=== PATIENT | male | born 1970 | race Two or more races ===

== ENCOUNTER 2024-06-15 08:40 | Day surgery (SDC) | payer MEDICAID, SELFPAY ==
--- NOTE | 2024-06-14 07:00 | EKG_ITS ---
[facility] Test Date: 2024-06-14 Pat Name: KENZIE VEGA Department: Room: - Gender: Male Health Services Administrator: BILLIE : 1970 Requested By: Vinod Montalvo Order Number: [id number] Reading MD: Vinod Montalvo Measurements Intervals [place] Rate: 58 P: 37 PA: 159 QRS: 48 QRSD: 106 T: 38 QT: 388 QTc: 383 Interpretive Statements SINUS BRADYCARDIA INDETERMINATE AXIS No previous ECG available for comparison /store/S0/[id number]/ecg/[id number].pdf
[2024-06-14 07:06] VITALS: BMI 25.3
[2024-06-14 07:38] LABS: Collection Type, Urine Clean Catch; Squamous Epithelial Cell,Urine 0 /hpf (0-5)
[2024-06-14 09:14] LABS: Anion Gap 6 (7-16); BUN/Creatinine Ratio 25 Ratio (12-20); Blood Urea Nitrogen 20 mg/dL (9-23); Calcium 10.2 mg/dL (8.3-10.6); Carbon Dioxide 30.6 mMol/L (20.0-31.0); Chloride 101 mMol/L (98-107); Creatinine (Component) 0.8 mg/dL (0.6-1.3); Estimated Creatinine Clearance 103.1 mL/min (>60); Glucose 134 mg/dL (74-106); Osmolality,Calculated 280 (275-295); Sodium 138 mMol/L (136-145); eGFR > 60 See Note
[2024-06-14 09:15] LABS: Basophils % (Auto) 0 % (0-2.5); Eosinophils # (Auto) 0.1 Thou/mm3 (0.0-0.5); Eosinophils % (Auto) 1 % (0-10); Hematocrit 41.7 % (41.0-53.0); Hemoglobin 14.1 g/dL (13.5-16.0); Immature Granulocytes % (Auto) 0 % (0-0); Immature Granulocytes Auto 0.03 Thou/mm3 (0.00-0.00); Lymphocytes # (Auto) 1.7 Thou/mm3 (1.0-4.8); Lymphocytes % (Auto) 25 % (10-50); Mean Corpuscular HGB Conc 33.8 g/dl (31.0-37.0); Mean Corpuscular Hemoglobin 30.2 pg (25.0-35.0); Mean Corpuscular Volume 89 fL (80-100); Monocytes # (Auto) 0.6 Thou/mm3 (0.0-0.8); Monocytes % (Auto) 9 % (0-12); Neutrophils # (Auto) 4.5 Thou/mm3 (1.8-7.7); Neutrophils % (Auto) 65 % (37-80); Nucleated Red Blood Cell % 0 /100 WBC (0); Platelet Count 237 Thou/mm3 (140-440); RDW Standard Deviation 40.9 fL (35.1-43.9); Red Blood Count 4.67 Miln/mm3 (4.50-5.90)
[2024-06-14 09:25] LABS: Bilirubin,Urine Negative (Negative); Blood,Urine Negative (Negative); Clarity,Urine Clear (Clear/Hazy); Color,Urine Lt-Yellow (Lt Yel-Yel); Glucose, Urine Negative (Negative); Ketones,Urine Negative (Negative); Leukocyte Esterase,Urine Negative (Negative); Nitrite,Urine Negative (Negative); Protein,Urine Negative (Neg - Trace); RBC,Urine 4 /hpf (0-3); Specific Gravity,Urine 1.024 (1.001-1.035); Urobilinogen,Urine Negative mg/dL (0.0-1.0); WBC,Urine < 1 /hpf (0-5)
--- NOTE | 2024-06-14 10:09 | ESHP_ITS ---
RE: KENZIE VEGA : 1970 DATE OF ADMISSION: 06/14/2024 HISTORY OF PRESENT ILLNESS: Kenzie Vega is a 54-year-old male who was referred to me with a history of tight phimosis. He has trouble cleaning his penis and head of the penis. PAST SURGICAL HISTORY: None. SOCIAL HISTORY: He has four children. PAST MEDICAL HISTORY: No history of diabetes mellitus. No history of hypertension. ALLERGIES: NONE KNOWN. HOME MEDICATIONS: None. PHYSICAL EXAMINATION: HEENT: Normal. NECK: Supple. LUNGS: Clear. CARDIOVASCULAR: Heart sounds are normal. ABDOMEN: Soft without any organomegaly. No guarding. No rigidity. EXTREMITIES: Normal. GENITOURINARY: Phallus reveals tight phimosis. Testes are down in scrotum. IMPRESSION: Tight phimosis. PLAN: Circumcision. Planned procedure risks and complications have been discussed with the patient. The patient has understood them and agreed to proceed. DT: 09:17:23 TT: 10:08:00 Ref: [id number] - TID: [id number]
[2024-06-15] VITALS (7 sets, daily range): BP systolic 116–134; BP diastolic 70–86; PULSE 72–95; RESP 12–20; TEMP 36.1–36.4; O2SAT 98–100; BMI 25.1
[2024-06-15] MEDS: RINGERS LACTATED 1000 ML 1,000 ML 20 ML IV (09:40)
--- NOTE | 2024-06-15 10:55 | SUR.PHASEI ---
pt received from OR in recovery bay 2. pt obtunded, breathing unlabored on 8l oxymask, oral airway in place. v/s stable. pt dressing to penis scant blood noted. report received from Dr. Weir and Joshua LOMBARDI.
--- NOTE | 2024-06-15 11:40 | SUR.PHASEII ---
pt able to tolerate oral fluids without difficulty swallowing or nausea/vomiting.
--- NOTE | 2024-06-15 12:00 | SUR.PHASEII ---
pt awake and alert, breathing unlabored on room air. v/s stable. pt dressing to penis area cdi. pt able to ambulate to wheelchair with steady gait. d/c instructions given with in room using oral surgery physician Sydney Garcia, all questions answered. pt d/c via wheelchair with all belongings.
--- NOTE | 2024-06-15 15:43 | ESOP_ITS ---
RE: KENZIE VEGA : 1970 DATE OF OPERATION: 06/15/2024 PREOPERATIVE DIAGNOSIS: Very tight phimosis with adhesions between foreskin and glans penis. POSTOPERATIVE DIAGNOSIS: Very tight phimosis with adhesions between foreskin and glans penis. PROCEDURE PERFORMED: Circumcision. ANESTHESIA: General. INDICATION: The patient is a 54-year-old male with very tight phimosis. He was now scheduled to have circumcision. Planned procedure, risks and complications have been discussed with the patient. The patient understood them and agreed to proceed. After the patient was brought to the operating table under adequate general anesthesia and supine position, parts were prepped and draped in the usual fashion. Circumcision was then carried out in a standard fashion by incising the foreskin in a circumferential manner at the level of rick glandis. Complete hemostasis was obtained. The patient had a lot of adhesions between foreskin and glans penis. They were . Hemostasis was achieved by using electrocoagulation. Skin was reapproximated back by placing interrupted sutures of 3-0 chromic gut sutures. Sterile dressing was applied. Local anesthetic was injected at the base of the penis for the control of pain. The patient was then transferred to the recovery room in a satisfactory condition having tolerated the entire procedure well. Sponge count and needle count at the end of the procedure was found to be correct. Estimated blood loss was approximately 5 mL. DT: 11:10:36 TT: 15:42:00 Ref: [id number] - TID: [id number]
== END 2024-06-15 12:00 | disposition home or self-care (01) ==
PROVIDERS: PCP Nurse Practitioner Primary Care; Referring Provider Surgery; Visit Provider Surgery
PROC: (CPT 54161; principal; 2024-06-15 09:30)
DX: N47.1 Phimosis (principal); Z01.810 Encounter for preprocedural cardiovascular examination
CPT/HCPCS: 54161; 36415; 80048; 81001; 85025; 93005; A4649; J0690; J2250; J2704; J3010; J3490; J7120; A9270; J0665

== ENCOUNTER 2024-06-16 15:09 | Emergency (ER) | payer MEDICAID, SELFPAY ==
[2024-06-16 15:09] VITALS: BMI 25.1
[2024-06-16 15:16] VITALS: BP 133/74; PULSE 74; RESP 18; TEMP 37.1; O2SAT 97
--- NOTE | 2024-06-16 15:41 | EDNOTE_ITS ---
ED Male Genitalurinary RME/HPI General Chief complaint: Urogenital-Male Stated complaint: PENIS SX YESTERDAY BLEEDING TODAY Time Seen by Provider: 06/16/24 15:12 Arrival date/time: 06/16/24 15:09 54-year-old male presents the emergency department today stating that he had a circumcision yesterday and has bleeding from the penis today Limitations: no limitations Related Data Home Medications ?Medication ?Instructions ?Recorded ?Confirmed atorvastatin 40 mg tablet 40 mg PO QPM 06/14/24 06/14/24 terconazole 0.8 % vaginal cream 1 applic USEASDIRECTD 06/14/24 06/14/24 Previous Rx's ?Medication ?Instructions ?Recorded ciprofloxacin HCl 500 mg tablet 500 mg PO BID #14 tabs 06/15/24 (Cipro) hydrocodone 5 mg-acetaminophen 325 1 tab PO Q6H PRN pain #30 tabs 06/15/24 mg tablet Allergies Allergy/AdvReac Type Severity Reaction Status Date / Time No Known Allergies Allergy Verified 06/15/24 09:41 Review of Systems Review of Systems Systems Reviewed: All systems reviewed, normal except as documented Constitutional Constitutional: Reports system reviewed and no additional complaints, except as documented, Denies fever(s) and Denies headache(s) Eyes Eyes: Reports system reviewed and no additional complaints, except as documented and Denies blurry vision ENT Ears, Nose, Mouth, and Throat: Reports system reviewed and no additional complaints, except as documented, Denies headache(s), Denies nasal congestion and Denies nasal discharge Cardiovascular Cardiovascular: Reports system reviewed and no additional complaints, except as documented, Denies chest pain and Denies dyspnea Respiratory Respiratory: Reports system reviewed and no additional complaints, except as documented, Denies chest congestion, Denies cough and Denies dyspnea Gastrointestinal Gastrointestinal: Reports system reviewed and no additional complaints, except as documented and Denies abdominal pain Genitourinary Genitourinary: Reports other (Surgical wound penis) Integumentary/Breasts Skin/Breast: Reports system reviewed and no additional complaints, except as documented, Denies rash and Reports wounds (Surgical wound penis) Neurologic Neurologic: Reports system reviewed and no additional complaints, except as documented, Reports as per HPI and Denies headache(s) Past Medical History Past Medical History NEUROLOGIC: Negative Neurological Disorders or Seizures CARDIAC: Positive Cardiac Disorders and Hypercholesterolemia; Negative Congestive Heart Failure RESPIRATORY: Negative Chronic Obstructive Pulmonary Disease (COPD) GASTROINTESTINAL: Negative Gastrointestinal Disorders or Hepatitis GENITOURINARY: Negative Genitourinary Disorders or Renal Disease MUSCULOSKELETAL: Negative Musculoskeletal Disorders ENDOCRINE: Negative Endocrine Disorders, Diabetes Mellitus Type 1 or Diabetes Mellitus Type 2 HEMATOLOGIC: Negative Blood Disorders OTHER HISTORY: Positive Chicken Pox; Negative Hospitalization, Autoimmune Disease, Shingles, Blood Transfusions, Blood Transfusion Reaction, Anesthesia Reactions or Cancer Family History FAMILY HISTORY: Negative Family Psychiatric Problems, Family Respiratory Disorders, Family Cardiac Disorders, Family Gastrointestinal Problems, Family Cancer, Family Surgery or Family Anesthesia Reaction Social History SMOKING STATUS: Never smoker ED Exam General Limitations: Present no limitations General appearance: Present alert and in no apparent distress Head Head exam: Present atraumatic, normocephalic and normal inspection Eye Eye exam: Present normal appearance, PERRL and EOMI; Absent conjunctival injection ENT ENT exam: Present normal exam, normal oropharynx and mucous membranes moist Neck Neck exam: Present normal inspection, full ROM and trachea midline Chest Chest inspection: Present normal inspection and symmetric chest wall rise Respiratory Respiratory exam: Present normal lung sounds bilaterally; Absent respiratory distress Cardiovascular Cardiovascular exam: Present regular rate, normal rhythm and normal heart sounds Abdominal Exam Abdominal exam: Present soft and normal bowel sounds; Absent distention, tenderness, guarding, rebound, rigidity or tenderness at McBurney's Point Abdominal tenderness: Absent RUQ or RLQ exam: Present other (Bleeding from penis) Extremities Exam Extremities exam: Present normal inspection and full ROM Back Exam Back exam: Present normal inspection and full ROM Neurological Exam Neurological exam: Present alert, oriented X3 and CN II-XII intact Psychiatric Psychiatric exam: Present normal affect and normal mood Skin Skin exam: Present warm, dry, intact and normal color Course Quality Measures none Vital Signs Vital signs: Vital Signs Temperature 98.8 F 06/16/24 15:16 Pulse Rate 74 06/16/24 15:16 Respiratory Rate 18 06/16/24 15:16 Blood Pressure 133/74 H 06/16/24 15:16 Pulse Oximetry (%) 97 06/16/24 15:16 Oxygen Delivery Method Room Air 06/16/24 15:16 O2 saturation 97% room air within normal limits Urogenital - Male MDM Narrative MDM Narrative:: 54-year-old male presents the emergency department today stating that he had a circumcision yesterday and has bleeding from the penis today On exam patient has no active bleeding dressing is changed and new dressings applied Consultation: I spoke with Dr. Montalvo states he will see the patient as office on Tuesday At time of discharge patient appears well no active bleeding Patient data External records reviewed:: [facility] previous records Clinical information provided by:: patient Social determinants that could affect healthcare access:: none Patient has the following chronic illnesses:: None How is presenting disease/condition affected by chronic disease/condition?: no chronic disease Evaluation data The following diagnostics were reviewed and interpreted by me:: other (specify) (N/A) Lab and/or radiology exams considered but not ordered:: Considered not ordered Interpretation Summary: N/A Medications / Prescriptions Medications or Prescriptions considered but not ordered:: Given no meds Medication administrations:: No meds given Consultations Consultation(s) initiated? (list below): Yes Consultation #1 (Physician, Specialty, Details): Dr Montalvo urologist Diagnosis Urogenital Male Differential Diagnosis: other (Laceration, abrasion, bleeding postop) Most likely diagnosis given after review of the tests above:: Postop bleeding Admission Indicated Admission indicated?: not indicated Admission Request Was there a request for admission?: No Disposition Plan Disposition Plan: Discharge Discharge Attestation Discharge Attestation: The patient and all family members were given an opportunity to ask questions and understood the discharge instructions. Discharge instructions specifically effects, indications for sooner follow up or return to the emergency department, and the expected course of current diagnosis. Patient condition: Stable Discharge Plan Plan Patient Disposition: HOME (Self Care) Disposition Comment: Stable Prescriptions/Referrals Prescriptions/Med Rec: No Action atorvastatin 40 mg Tablet 40 mg PO QPM terconazole 0.8 % cream 1 applic USEASDIRECTD Patient Comments: APPLY TO AFFECTED AREA AROUND PENIS IN THE MORNING AND IN THE EVENING hydrocodone-acetaminophen 5-325 mg tablet 1 tab PO Q6H MDD 4 PRN (Reason: pain) Qty: 30 0RF ciprofloxacin HCl [Cipro] 500 mg tablet 500 mg PO BID Qty: 14 0RF Referrals: Vinod Montalvo MD [Physician] - 06/18/24 2:00 pm Problem List Clinical Impression: Bleeding of penis Patient/Caregiver Discharge Instructions Additional Instructions: Please see you urologist Tuesday at 2 PM for emergent concerns return immediately Print Language: Macedonian Stand Alone Forms: Cee Award Info., Patient Portal Info Letter PA/PARTY COORDINATOR Supervising Physician PA/PARTY COORDINATOR Supervising Physician: Dr Gambino
== END 2024-06-16 16:34 | disposition home or self-care (01) ==
PROVIDERS: Emergency Provider Emergency Medicine
DX: N99.820 Postprocedural hemorrhage of a genitourinary system organ or structure following a genitourinary system procedure (principal); Y83.8 Other surgical procedures as the cause of abnormal reaction of the patient, or of later complication, without mention of misadventure at the time of the procedure
CPT/HCPCS: 99281

== ENCOUNTER 2024-06-22 07:34 | Emergency (ER) | payer MEDICAID, SELFPAY ==
[2024-06-22 07:35] VITALS: BMI 25.1
[2024-06-22 07:47] VITALS: BP 125/77; PULSE 99; RESP 20; TEMP 36.6; O2SAT 99; BMI 24.9
--- NOTE | 2024-06-22 08:33 | PD.EDADULT ---
ED General RME/HPI General Chief complaint: General Adult/Misc Complain Stated complaint: CONSTIPATED Time Seen by Provider: 06/22/24 07:46 Source: patient Arrival date/time: 06/22/24 07:34 This is a 54-year-old male who presents to the emergency department with complaints of constipation. Patient reports he recently had a surgical circumcision. He was placed on antibiotics and Calumet for pain states since taking the Calumet he has been severely constipated. Reports he feels the bowel or fecal matter is stuck in his rectum. Denies abdominal pain no fever no nausea no vomiting Mode of arrival: ambulatory Limitations: no limitations Related Data Home Medications ?Medication ?Instructions ?Recorded ?Confirmed atorvastatin 40 mg tablet 40 mg PO QPM 06/14/24 06/14/24 terconazole 0.8 % vaginal cream 1 applic USEASDIRECTD 06/14/24 06/14/24 Previous Rx's ?Medication ?Instructions ?Recorded ciprofloxacin HCl 500 mg tablet 500 mg PO BID #14 tabs 06/15/24 (Cipro) hydrocodone 5 mg-acetaminophen 325 1 tab PO Q6H PRN pain #30 tabs 06/15/24 mg tablet magnesium citrate 150 ml PO BID PRN constipation 06/22/24 #296 mL Allergies Allergy/AdvReac Type Severity Reaction Status Date / Time No Known Allergies Allergy Verified 06/22/24 07:37 Review of Systems Review of Systems Systems Reviewed: All systems reviewed, normal except as documented Narrative Review of Systems: Gen: No fever, no chills, no weight loss EYES: No discharge, no visual changes, no pain HEENT: No ear pain, no congestion, no sore throat PULM: No shortness of breath, no cough, no congestion CV: No chest pain, no dyspnea on exertion, no palpitations GI: No nausea, no vomiting, no diarrhea, no pain, ++ constipation : No frequency, no urgency,? no dysuria Musc/skel: No joint pain, no back pain Skin: No rash? ED Exam General Limitations: Present no limitations General appearance: Present alert and in no apparent distress Head Head exam: Present atraumatic Eye Eye exam: Present normal appearance, PERRL and EOMI ENT ENT exam: Present normal exam, normal oropharynx and mucous membranes moist Neck Neck exam: Present normal inspection, full ROM and trachea midline Chest Chest inspection: Present normal inspection and symmetric chest wall rise Respiratory Respiratory exam: Present normal lung sounds bilaterally Cardiovascular Cardiovascular exam: Present regular rate, normal rhythm and normal heart sounds Abdominal Exam Abdominal exam: Present soft and normal bowel sounds Extremities Exam Extremities exam: Present normal inspection and full ROM Back Exam Back exam: Present normal inspection and full ROM Neurological Exam Neurological exam: Present alert, oriented X3 and CN II-XII intact Psychiatric Psychiatric exam: Present normal affect and normal mood Skin Skin exam: Present warm, dry, intact and normal color Course Quality Measures none Orders Category Date Time Status Enema Administration NOW Care 06/22/24 08:51 Completed Vital Signs Vital signs: Vital Signs Temperature 97.9 F 06/22/24 07:47 Pulse Rate 99 06/22/24 07:47 Respiratory Rate 20 06/22/24 07:47 Blood Pressure 125/77 06/22/24 07:47 Pulse Oximetry (%) 99 06/22/24 07:47 Oxygen Delivery Method Room Air 06/22/24 07:47 MDM Patient data External records reviewed:: [facility] previous records Clinical information provided by:: patient Social determinants that could affect healthcare access:: none Patient has the following chronic illnesses:: none How is presenting disease/condition affected by chronic disease/condition?: no chronic disease Evaluation data The following diagnostics were reviewed and interpreted by me:: other (specify) Lab and/or radiology exams considered but not ordered:: Consider abdominal x-ray however based on patient's symptoms we will treat with enema. Interpretation Summary: no Medications Medications considered but not ordered:: no Medication administrations:: no Consultations Consultation(s) initiated? (list below): No Diagnosis Differential Diagnosis ED Complaint MDM: constipation Most likely diagnosis given after review of the tests above:: constipation Admission Indicated Admission indicated?: not indicated Explain why admission is indicated or not indicated:: no Admission Request Was there a request for admission?: No Disposition Plan Disposition Plan: Discharge Discharge Attestation Discharge Attestation: The patient and all family members were given an opportunity to ask questions and understood the discharge instructions. Discharge instructions specifically effects, indications for sooner follow up or return to the emergency department, and the expected course of current diagnosis. Patient condition: Stable Medical Decision Making MDM Narrative MDM Narrative: Patient received a enema in the emergency department immediately had a large bowel movement with relief.. Strictly advised patient to stop taking Calumet which worsen his constipation advised to switch over to Tylenol or ibuprofen for pain. Patient verbalized understanding. Differential Diagnosis Differential Diagnosis: constipation Discharge Plan Plan Patient Disposition: HOME (Self Care) Patient condition on transfer: Stable Prescriptions/Referrals Prescriptions/Med Rec: New magnesium citrate Solution 150 ml PO BID PRN (Reason: constipation) Qty: 296 0RF No Action atorvastatin 40 mg Tablet 40 mg PO QPM terconazole 0.8 % cream 1 applic USEASDIRECTD Patient Comments: APPLY TO AFFECTED AREA AROUND PENIS IN THE MORNING AND IN THE EVENING hydrocodone-acetaminophen 5-325 mg tablet 1 tab PO Q6H MDD 4 PRN (Reason: pain) Qty: 30 0RF ciprofloxacin HCl [Cipro] 500 mg tablet 500 mg PO BID Qty: 14 0RF Referrals: Vinod Montalvo MD [Primary Care Provider] - In 1 week Problem List Clinical Impression: Constipation due to opioid therapy Patient/Caregiver Discharge Instructions Discharge Activity: activity as tolerated Education Materials: ED Constipation (Adult) Additional Instructions: Please stop or decrease the use of narcotics which can lead to constipation - send mag citrate bottle to pharmacy please can drink half a bottle in 24 hours Increase fluid hydration and fiber intake. Follow-up with your primary doctor in 24 to 48 hours Return to the emergency department with any worsening symptoms change in condition Print Language: Yoruba Stand Alone Forms: Cee Award Info., Patient Portal Info Letter LANA/ROSEMARY Supervising Physician LANA/ROSEMARY Supervising Physician: dr. Avelar
== END 2024-06-22 09:17 | disposition home or self-care (01) ==
PROVIDERS: Emergency Provider Emergency Medicine; PCP Surgery
DX: K59.03 Drug induced constipation (principal); T40.2X5A Adverse effect of other opioids, initial encounter
CPT/HCPCS: 99283

== ENCOUNTER 2024-06-29 04:23 | Emergency (ER) | payer MEDICAID, SELFPAY ==
[2024-06-29 04:25] VITALS: BMI 25.1
[2024-06-29 04:50] VITALS: BP 117/78; PULSE 88; RESP 18; TEMP 37.1; O2SAT 97
--- NOTE | 2024-06-29 04:50 | PD.EDRME ---
Rapid Medical Screening Exam RME Arrival date/time: 06/29/24 04:23 54 year old male present to ED for c/o of bleeding tonight s/p phimosis surgery I have greeted and performed a focused initial assessment of this patient. A comprehensive ED assessment and evaluation of the patient, analysis of all test results, and completion of the medical decision making process will be conducted by additional ED providers. Chief Complaint: Urogenital-Male Time Seen by Provider: 06/29/24 04:26
[2024-06-29 09:42] VITALS: BP 121/82; PULSE 72; RESP 16; TEMP 37.1; O2SAT 100
[2024-06-29 12:16] VITALS: BP 135/72; PULSE 65; RESP 18; TEMP 37; O2SAT 96
--- NOTE | 2024-06-29 13:09 | EDNOTE_ITS ---
<Statement entered by Neida Caro MD - 07/05/24 16:21> As co-signing physician, I was present and available for consult prn. I concur with the plan and care as documented by the midlevel provider. ED General RME/HPI General Chief complaint: Urogenital-Male Stated complaint: bleeding from penis Time Seen by Provider: 06/29/24 04:26 Arrival date/time: 06/29/24 04:23 CC: Penile pain HPI patient assessed at 1:10 PM for penile pain which the the patient now says has mostly subsided. The patient had a phimosis procedure done by Dr. Gibson and is complaining about penile tip pain he denies any painful urination but states he had 1 episode of bloody urination. Patient the meantime states that the urine has turned clear again. Localized pain and tenderness to the penis. Patient denies fever or any other symptoms. RME / HPI RME / HPI narrative: 06/29/24 04:23 54 year old male present to ED for c/o of bleeding tonight s/p phimosis surgery I have greeted and performed a focused initial assessment of this patient. A comprehensive ED assessment and evaluation of the patient, analysis of all test results, and completion of the medical decision making process will be conducted by additional ED providers. Related Data Home Medications ?Medication ?Instructions ?Recorded ?Confirmed atorvastatin 40 mg tablet 40 mg PO QPM 06/14/24 06/14/24 terconazole 0.8 % vaginal cream 1 applic USEASDIRECTD 06/14/24 06/14/24 Previous Rx's ?Medication ?Instructions ?Recorded ciprofloxacin HCl 500 mg tablet 500 mg PO BID #14 tabs 06/15/24 (Cipro) hydrocodone 5 mg-acetaminophen 325 1 tab PO Q6H PRN pain #30 tabs 06/15/24 mg tablet magnesium citrate 150 ml PO BID PRN constipation 06/22/24 #296 mL Allergies Allergy/AdvReac Type Severity Reaction Status Date / Time No Known Allergies Allergy Verified 06/22/24 07:37 Review of Systems Review of Systems Narrative Review of Systems: GEN: No fever, no chills, no weight loss EYES: No discharge, no visual changes, no pain HEENT: No ear pain, no congestion, no sore throat PULM: No shortness of breath, no cough, no congestion CV: No chest pain, no dyspnea on exertion, no palpitations GI: No nausea, no vomiting, no diarrhea, no pain, no constipation : No frequency, no urgency, no dysuria MUSC/SKEL: No joint pain, no back pain SKIN:+penile pain, No rash PSYCH: No hallucinations, no depression HEME/LYMPH: No easy bleeding or bruising tendencies NEURO: No weakness, no headache Past Medical History Past Medical History NEUROLOGIC: Negative Neurological Disorders or Seizures CARDIAC: Positive Cardiac Disorders and Hypercholesterolemia; Negative Congestive Heart Failure RESPIRATORY: Negative Chronic Obstructive Pulmonary Disease (COPD) GASTROINTESTINAL: Negative Gastrointestinal Disorders or Hepatitis GENITOURINARY: Negative Genitourinary Disorders or Renal Disease MUSCULOSKELETAL: Negative Musculoskeletal Disorders ENDOCRINE: Negative Endocrine Disorders, Diabetes Mellitus Type 1 or Diabetes Mellitus Type 2 HEMATOLOGIC: Negative Blood Disorders OTHER HISTORY: Positive Chicken Pox; Negative Hospitalization, Autoimmune Disease, Shingles, Blood Transfusions, Blood Transfusion Reaction, Anesthesia Reactions or Cancer Family History FAMILY HISTORY: Negative Family Psychiatric Problems, Family Respiratory Disorde rs, Family Cardiac Disorders, Family Gastrointestinal Problems, Family Cancer, Family Surgery or Family Anesthesia Reaction Social History SMOKING STATUS: Former smoker ED Exam Narrative Physical exam: [General: In mild discomfort but not in any acute distress Head normocephalic HEENT: Within acceptable limits Neck is supple nontender Chest equal chest rise nontender to palpation Respiratory: Clear to auscultation no wheezes crackles or rubs CV: Rate rhythm is regular no murmurs rubs or clicks Abdomen is distended secondary to body habitus soft nontender no masses positive bowel sounds all 4 quadrants Back: No CVA tenderness no spinous process tenderness from cervical spine thor acic and lumbar spine Skin: Penis: The patient has open ulcerations to the head, there is crusting including old blood and small amount of eschar, no surrounding erythema or edema no streaking to the shaft of the penis. No exudate, active bleeding or oozing. Otherwise skin is intact no petechiae rash induration ulceration or crepitus Extremities: Moving all extremity against resistance cap refill less than 2 seconds neurosensory intact Neuro: Awake alert oriented x3 Glascow coma 15 no focal deficits] Course Quality Measures none Orders Category Date Time Status UA [Urinalysis] Stat Lab 06/29/24 15:10 Completed UA, C/S IF [Urinalysis, C/S if Indicated] Stat Lab 06/29/24 15:10 Completed HYDROcodone*/APAP 5/325 [[place] 5/325] Med 06/29/24 09:46 Discontinued 1 tab PO X1 ONE Vital Signs Vital signs: Vital Signs Temperature 98.8 F 06/29/24 04:50 Pulse Rate 88 06/29/24 04:50 Respiratory Rate 18 06/29/24 04:50 Blood Pressure 117/78 06/29/24 04:50 Pulse Oximetry (%) 97 06/29/24 04:50 Oxygen Delivery Method Room Air 06/29/24 04:50 [facility] Patient data External records reviewed:: [facility] previous records Clinical information provided by:: patient Social determinants that could affect healthcare access:: none Patient has the following chronic illnesses:: Hyperlipidemia How is presenting disease/condition affected by chronic disease/condition?: uneffected by Evaluation data The following diagnostics were reviewed and interpreted by me:: lab results Lab and/or radiology exams considered but not ordered:: See [facility] Interpretation Summary: Penile scarring Medications Medications considered but not ordered:: None Medication administrations:: Medication Administration History Discontinued Medications Hydrocodone Bitart/Acetaminophen (Hydrocodone/Apap 5/325 Tablet) 1 tab PO X1 ONE Stop: 06/29/24 09:47 Last Admin: 06/29/24 11:46 Dose: Not Given Documented By: ISA Non-Admin Reason: Patient Refused None Consultations Consultation(s) initiated? (list below): No Diagnosis Differential Diagnosis ED Complaint MDM: UTI urinary obstruction pyelonephritis Most likely diagnosis given after review of the tests above:: Penile pain Admission Indicated Admission indicated?: not indicated Explain why admission is indicated or not indicated:: Stable for outpatient follow-up Admission Request Was there a request for admission?: No Disposition Plan Disposition Plan: Discharge Discharge Attestation Discharge Attestation: The patient and all family members were given an opportunity to ask questions and understood the discharge instructions. Discharge instructions specifically effects, indications for sooner follow up or return to the emergency department, and the expected course of current diagnosis. Patient condition: Stable Medical Decision Making Differential Diagnosis Differential Diagnosis: UTI urinary obstruction pyelonephritis Lab Data Labs: Lab Results 06/29/24 Range/Units 15:10 Ur Collection Type Clean Catch Urine Color Yellow (Lt Yel-Yel) Urine Clarity Clear (Clear/Hazy) Urine pH 6.5 (5.0-7.0) Ur Specific [place] 1.020 (1.001-1.035) Urine Protein Trace (Neg - Trace) Urine Glucose (UA) Negative (Negative) Urine Ketones Negative (Negative) Urine Blood 2+ A (Negative) Urine Nitrite Negative (Negative) Urine Bilirubin Negative (Negative) Urine Urobilinogen (Auto) Negative (0.0-1.0) mg/dL Ur Leukocyte Esterase Positive (Negative) Urine RBC 21 H (0-3) /hpf Urine WBC 4 (0-5) /hpf Ur Squamous Epith Cells 0 (0-5) /hpf Urine Bacteria None (None) Ur Culture Indicated? Not Indicated Discharge Plan Plan Patient Disposition: HOME (Self Care) Patient condition on transfer: Stable Prescriptions/Referrals Prescriptions/Med Rec: No Action magnesium citrate Solution 150 ml PO BID PRN (Reason: constipation) Qty: 296 0RF atorvastatin 40 mg Tablet 40 mg PO QPM terconazole 0.8 % cream 1 applic USEASDIRECTD Patient Comments: APPLY TO AFFECTED AREA AROUND PENIS IN THE MORNING AND IN THE EVENING hydrocodone-acetaminophen 5-325 mg tablet 1 tab PO Q6H MDD 4 PRN (Reason: pain) Qty: 30 0RF ciprofloxacin HCl [Cipro] 500 mg tablet 500 mg PO BID Qty: 14 0RF Referrals: Los COTE)Barbara FNP [Primary Care Provider] - In 1 week Problem List Clinical Impression: Pain, penile Patient/Caregiver Discharge Instructions Other Activity Instructions:: Follow-up with Dr. Gibson Education Materials: ED Phimosis Print Language: Tajik Stand Alone Forms: Cee Award Info., Work/School Release, Patient Portal Info Letter LANA/EMPLOYMENT SERVICES DIRECTOR Supervising Physician LANA/EMPLOYMENT SERVICES DIRECTOR Supervising Physician: Deepak Oakley ENP
[2024-06-29 15:00] VITALS: BP 131/85; PULSE 75; RESP 17; TEMP 37.1; O2SAT 98
[2024-06-29 15:22] LABS: Collection Type, Urine Clean Catch; Squamous Epithelial Cell,Urine 0 /hpf (0-5)
[2024-06-29 15:27] LABS: Bilirubin,Urine Negative (Negative); Blood,Urine 2+ (Negative); Clarity,Urine Clear (Clear/Hazy); Color,Urine Yellow (Lt Yel-Yel); Culture Indicated,Urine Not Indicated; Glucose, Urine Negative (Negative); Ketones,Urine Negative (Negative); Leukocyte Esterase,Urine Positive (Negative); Nitrite,Urine Negative (Negative); PH,Urine 6.5 (5.0-7.0); Protein,Urine Trace (Neg - Trace); RBC,Urine 21 /hpf (0-3); Urobilinogen,Urine Negative mg/dL (0.0-1.0); WBC,Urine 4 /hpf (0-5)
== END 2024-06-29 16:55 | disposition home or self-care (01) ==
PROVIDERS: Nurse Practitioner Family; Emergency Provider Emergency Medicine; PCP Nurse Practitioner Primary Care
DX: N48.89 Other specified disorders of penis (principal)
CPT/HCPCS: 81001; 99284

== ENCOUNTER 2025-03-18 19:21 | Emergency (ER) | payer MEDICAID, SELFPAY ==
[2025-03-18 19:21] VITALS: BP 124/77; PULSE 75; RESP 20; TEMP 36.6; O2SAT 96
[2025-03-18 19:22] VITALS: BMI 25.8
--- NOTE | 2025-03-18 20:54 | PD.EDRME ---
Rapid Medical Screening Exam RME Arrival date/time: 03/18/25 19:21 Chief Complaint: General Adult/Misc Complain Time Seen by Provider: 03/18/25 20:06 Vital signs: Vital Signs Temperature 97.8 F 03/18/25 19:21 Pulse Rate 75 03/18/25 19:21 Respiratory Rate 20 03/18/25 19:21 Blood Pressure 124/77 03/18/25 19:21 Pulse Oximetry (%) 96 03/18/25 19:21 Oxygen Delivery Method Room Air 03/18/25 19:21 RME Narrative: Patient reports infection to penile shaft x4 days. Hx circumcision in May 2024.
--- NOTE | 2025-03-18 21:04 | XR_ITS ---
Examination: CT pelvis, with intravenous contrast. 2-D coronal reconstructions. 2-D sagittal reconstructions. Date and time of exam :March 18, 2025 1137 hrs. Indications: Penile swelling with blood and pus from the penis, beginning 4 days ago circumcision last year. CTDI: vol (mGy):6.13 DLP: (mGycm):220 Technique: 1.25 mm axial sections of the pelvis of the obtained. Coronal and sagittal reconstructions have been obtained. Intravenous contrast administered 60 cc Isovue-370. Low dose protocols were performed. One or more of the following dose reduction techniques were used; automated exposure control, adjustment of the mA and/or KV according to patient size, use of iterative reconstruction technique. Findings: Normal appendix No bowel obstruction Transverse prostate dimension 4.6 cm Contracted urinary bladder No abscess in the perineum Impression: No perineal or pelvic abscess Consider testicular sonography follow-up
[2025-03-18 21:59] LABS: Basophils # (Auto) 0.0 Thou/mm3 (0.0-0.2); Basophils % (Auto) 0 % (0-2.5); Eosinophils # (Auto) 0.1 Thou/mm3 (0.0-0.5); Eosinophils % (Auto) 1 % (0-10); Hematocrit 39.7 % (41.0-53.0); Hemoglobin 13.1 g/dL (13.5-16.0); Immature Granulocytes Auto 0.03 Thou/mm3 (0.00-0.00); Lymphocytes # (Auto) 2.1 Thou/mm3 (1.0-4.8); Lymphocytes % (Auto) 21 % (10-50); Mean Corpuscular HGB Conc 33.0 g/dl (31.0-37.0); Mean Corpuscular Hemoglobin 30.4 pg (25.0-35.0); Mean Corpuscular Volume 92 fL (80-100); Monocytes # (Auto) 1.0 Thou/mm3 (0.0-0.8); Monocytes % (Auto) 9 % (0-12); Neutrophils # (Auto) 7.0 Thou/mm3 (1.8-7.7); Neutrophils % (Auto) 69 % (37-80); Nucleated Red Blood Cell # 0.00 Thou/mm3 (0.00-0.00); Nucleated Red Blood Cell % 0 /100 WBC (0); Platelet Count 188 Thou/mm3 (140-440); RDW Standard Deviation 41.7 fL (35.1-43.9); Red Blood Count 4.31 Miln/mm3 (4.50-5.90); White Blood Count 10.3 Thou/mm3 (3.8-10.6)
[2025-03-18 22:17] LABS: Alanine Aminotransferase 11 U/L (10-49); Albumin, Serum 4.8 gm/dL (3.5-5.0); Albumin/Globulin Ratio 1.8 (1.2-2.2); Alkaline Phosphatase 73 U/L (46-116); Anion Gap 9 (7-16); Aspartate Amino Transferase 15 U/L (0-34); BUN/Creatinine Ratio 24 Ratio (12-20); Bilirubin,Total 0.6 mg/dL (0.3-1.2); Blood Urea Nitrogen 24 mg/dL (9-23); Calcium 9.9 mg/dL (8.3-10.6); Calcium (Corrected) 9.9 mg/dL (8.5-10.1); Carbon Dioxide 29.4 mMol/L (20.0-31.0); Chloride 104 mMol/L (98-107); Creatinine (Component) 1.0 mg/dL (0.6-1.3); Estimated Creatinine Clearance 82.5 mL/min (>60); Globulin 2.6 gm/dL (2.3-3.5); Glucose 108 mg/dL (74-106); Osmolality,Calculated 288 (275-295); Potassium 4.0 mMol/L (3.4-5.1); Sodium 142 mMol/L (136-145); Total Protein 7.4 gm/dL (5.7-8.2); eGFR > 60 See Note
[2025-03-18 23:35] LABS: Collection Type, Urine Clean Catch; Squamous Epithelial Cell,Urine 0 /hpf (0-5)
[2025-03-18 23:52] LABS: Bilirubin,Urine Negative (Negative); Blood,Urine Trace (Negative); Clarity,Urine Clear (Clear/Hazy); Color,Urine Lt-Yellow (Lt Yel-Yel); Glucose, Urine Negative (Negative); Ketones,Urine Negative (Negative); Leukocyte Esterase,Urine Positive (Negative); Nitrite,Urine Negative (Negative); PH,Urine 6.0 (5.0-7.0); Protein,Urine Trace (Neg - Trace); RBC,Urine 23 /hpf (0-3); Specific Gravity,Urine 1.032 (1.001-1.035); Sperm,Urine Present; Urobilinogen,Urine Negative mg/dL (0.0-1.0); WBC,Urine 24 /hpf (0-5)
--- NOTE | 2025-03-19 00:33 | EDNOTE_ITS ---
ED Male Genitalurinary RME/HPI General Chief complaint: General Adult/Misc Complain Stated complaint: PENIS PROBLEM Time Seen by Provider: 03/18/25 20:06 Source: patient, RN notes reviewed and old records reviewed Arrival date/time: 03/18/25 19:21 Mode of arrival: ambulatory Limitations: no limitations RME / HPI RME / HPI Narrative: 54yom presents to ED for infection to penile shaft x4 days. Hx circumcision in May 2024. Patient reports mild dysuria and blood and pus around circumcision site. No fever, n/v or abdominal pain reported. No medications or treatments since onset. Patient has appt with Dr. Montalvo on 03/31 Related Data Home Medications ?Medication ?Instructions ?Recorded ?Confirmed atorvastatin 40 mg tablet 40 mg PO QPM 06/14/24 terconazole 0.8 % vaginal cream 1 applic USEASDIRECTD 06/14/24 06/14/24 Previous Rx's ?Medication ?Instructions ?Recorded ciprofloxacin HCl 500 mg tablet 500 mg PO BID #14 tabs 06/15/24 (Cipro) hydrocodone 5 mg-acetaminophen 325 1 tab PO Q6H PRN pa in #30 tabs 06/15/24 mg tablet magnesium citrate 150 ml PO BID PRN constipati on 06/22/24 #296 mL acetaminophen 500 mg tablet 1,000 mg (2 x 500 mg) PO Q 6H PRN 03/19/25 (Tylenol Extra Strength) pain #30 tabs cefdinir 300 mg capsule 300 mg PO BID 7 days #14 cap s 03/19/25 ibuprofen 600 mg tablet 600 mg PO Q6H PRN pain #30 t abs 03/19/25 Allergies Allergy/AdvReac Type Severity Reaction Status Date / Time No Known Allergies Allergy Verified 06/22/24 07:37 Review of Systems Review of Systems Systems Reviewed: All systems reviewed, normal except as documented Constitutional Constitutional: Denies chills and Denies fever(s) Gastrointestinal Gastrointestinal: Denies abdominal pain, Denies nausea and Denies vomiting Genitourinary Genitourinary: Reports dysuria, Denies flank pain, Denies hematuria, Denies scrotal swelling and Denies testicular pain Past Medical History Past Medical History CARDIAC: Positive Hypercholesterolemia Surgical History OTHER SURGICAL HX: circumcision 2/2 phimosis Social History SMOKING STATUS: Never smoker SUBSTANCE USE: does not use ALCOHOL: Never ED Exam General Limitations: Present no limitations General appearance: Present alert and in no apparent distress Head Head exam: Present atraumatic and normocephalic Eye Eye exam: Present normal appearance, PERRL and EOMI ENT ENT exam: Present normal exam and mucous membranes moist Neck Neck exam: Present normal inspection and full ROM Chest Chest inspection: Present normal inspection and symmetric chest wall rise Respiratory Respiratory exam: Present normal lung sounds bilaterally; Absent respiratory distress Cardiovascular Cardiovascular exam: Present regular rate and normal rhythm Abdominal Exam Abdominal exam: Present soft; Absent distention, tenderness, guarding or rebound exam: Present other (Bar Hostess present, Brinesha. Scant puruence and blood surrounding glans penis. No swelling or fluctuance. No urethral discharge); Absent testicular tenderness or scrotal swelling Extremities Exam Extremities exam: Present normal inspection and full ROM Back Exam Back exam: Absent CVA tenderness (R) or CVA tenderness (L) Neurological Exam Neurological exam: Present alert and oriented X3 Psychiatric Psychiatric exam: Present normal affect and normal mood Skin Skin exam: Present warm, dry and intact Course Quality Measures none Orders Category Date Time Status CT Screening NOW Care 03/18/25 21:04 Completed Insert IV NOW Care 03/18/25 23:[address] pelvis w con Stat Exams 03/18/25 21:04 Completed CBC Stat Lab 03/18/25 21:16 Completed CMP [Comprehensive Metabolic Panel] Stat Lab 03/18/25 21:16 Completed UA [Urinalysis] Stat Lab 03/18/25 23:25 Completed Urine Culture Stat Lab 03/18/25 23:25 Completed Ketorolac Inj [Toradol Inj] Med 03/19/25 00:35 Discontinued 30 mg IM X1 ONE cefTRIAXone [Rocephin] 1,000 mg Med 03/19/25 00:38 Discontinued Lidocaine 1% 20 ml [Xylocaine 1% 20 ML] 2.1 ml IM X1 Vital Signs Vital signs: Vital Signs Temperature 97.8 F 03/18/25 19:21 Pulse Rate 75 03/18/25 19:21 Respiratory Rate 20 03/18/25 19:21 Blood Pressure 124/77 03/18/25 19:21 Pulse Oximetry (%) 96 03/18/25 19:21 Oxygen Delivery Method Room Air 03/18/25 19:21 Urogenital - Male MDM Narrative MDM Narrative:: 54yom presents to ED for infection to penile shaft x4 days. Hx circumcision in D ec 2023. Patient reports mild dysuria and blood and pus around circumcision site. No fever, n/v or abdominal pain reported. No medications or treatments since onset. Patient has appt with Dr. Montalvo on 03/31 Will treat for UTI and infection around cirucmcision site. Patient is well- appearing, afebrile, vitals are stable. Encouraged good hygeine. Follow up with Dr. Montalvo as scheduled. Stable for dc, RTED precautions given. Patient data External records reviewed:: [facility] previous records (06/29/24 ED visit for penile pain) Clinical information provided by:: patient Social determinants that could affect healthcare access:: none Patient has the following chronic illnesses:: none How is presenting disease/condition affected by chronic disease/condition?: no chronic disease Evaluation data The following diagnostics were reviewed and interpreted by me:: lab results and radiology exam(s) Lab and/or radiology exams considered but not ordered:: none Interpretation Summary: No leukocytosis UA +leuks CT pelvis Impression: No perineal or pelvic abscess Consider testicular sonography follow-up Dictated By: Dmitry Guillory MD Medications / Prescriptions Medications or Prescriptions considered but not ordered:: none Medication administrations:: Medication Administration History Discontinued Medications Ceftriaxone Sodium 1,000 mg/ (Lidocaine HCl 2.1 ml) 0 mg IM X1 ONE Stop: 03/19/25 00:39 Last Admin: 03/19/25 01:08 Dose: 1,000 mg Documented By: CVL Ketorolac Tromethamine (Ketorolac Inj 30 Mg/Ml Vial) 30 mg IM X1 ONE Stop: 03/19/25 00:36 Last Admin: 03/19/25 01:08 Dose: 30 mg Documented By: CVL above medications administered in ED Consultations Consultation(s) initiated? (list below): No Diagnosis Urogenital Male Differential Diagnosis: urinary tract infection, urethritis, epididymitis and prostatitis Most likely diagnosis given after review of the tests above:: UTI Admission Indicated Admission indicated?: not indicated Admission Request Was there a request for admission?: No Disposition Plan Disposition Plan: Discharge Discharge Attestation Discharge Attestation: The patient and all family members were given an opportunity to ask questions and understood the discharge instructions. Discharge instructions specifically effects, indications for sooner follow up or return to the emergency department, and the expected course of current diagnosis. Patient condition: Stable Discharge Plan Plan Patient Disposition: HOME (Self Care) Patient condition on transfer: Stable Prescriptions/Referrals Prescriptions/Med Rec: New ibuprofen 600 mg tablet 600 mg PO Q6H PRN (Reason: pain) Qty: 30 0RF acetaminophen [Tylenol Extra Strength] 500 mg tablet 1,000 mg PO Q6H PRN (Reason: pain) Qty: 30 0RF cefdinir 300 mg capsule 300 mg PO BID 7 Days Qty: 14 0RF No Action magnesium citrate Solution 150 ml PO BID PRN (Reason: constipation) Qty: 296 0RF atorvastatin 40 mg Tablet 40 mg PO QPM terconazole 0.8 % cream 1 applic USEASDIRECTD Patient Comments: APPLY TO AFFECTED AREA AROUND PENIS IN THE MORNING AND IN THE EVENING hydrocodone-acetaminophen 5-325 mg tablet 1 tab PO Q6H MDD 4 PRN (Reason: pain) Qty: 30 0RF ciprofloxacin HCl [Cipro] 500 mg tablet 500 mg PO BID Qty: 14 0RF Referrals: [facility] (YURIY),ROSEMARY Jimenez [Primary Care Provider] - In 1 week Problem List Clinical Impression: UTI (urinary tract infection), Infection of penis Patient/Caregiver Discharge Instructions Education Materials: Urinary Tract Infections in Men Print Language: Citizen Of [place] Stand Alone Forms: Cee Award Info., Work/School Release, Patient Portal Info Letter PA/PORTFOLIO DIRECTOR Supervising Physician LANA/PORTFOLIO DIRECTOR Supervising Physician: Denis
[2025-03-19] MEDS: KETOROLAC INJ 30 MG/ML VIAL IM (01:08)
[2025-03-19] MEDS: cefTRIAXone 1,000 MG, LIDOCAINE 1% 20 ML 2.1 ML IM (01:08)
[2025-03-19 01:50] VITALS: RESP 18
== END 2025-03-19 01:51 | disposition home or self-care (01) ==
PROVIDERS: Physician Assistant; Emergency Provider Emergency Medicine; PCP Nurse Practitioner Primary Care
DX: N39.0 Urinary tract infection, site not specified (principal); N48.29 Other inflammatory disorders of penis; E78.00 Pure hypercholesterolemia, unspecified; Z98.890 Other specified postprocedural states
CPT/HCPCS: 36415; 72193; 80053; 81001; 85025; 87086; 96372; 99284; A4649; J0696; J1885; J3490; Q9967